=== PATIENT | male | born 1990 | race Caucasian/White ===

== ENCOUNTER 2018-11-03 07:12 | Emergency (ER) | payer OTHER ==
[2018-11-03 07:25] VITALS: BP 121/76
--- NOTE | 2018-11-03 07:33 | UC ---
Throat Pain/Nasal Sav HPI - HPI Summary HPI Summary: patient is a 28-year-old male who presents to the urgent care with chief complaint of sore throat. He reports that this HAS BEEN THERE SINCE MONDAY. He denies any fevers however he has been feeling hot and cold. He denies any difficulty swallowing, he denies any ear pain, cough or shortness of breath. She has no other complaints. He denies any trismus, denies any swelling of the tongue, denies any lip swelling. - History of Current Complaint Chief Complaint: UCRespiratory Stated Complaint: SORE THROAT Time Seen by Provider: 11/03/18 07:27 Hx Obtained From: Patient Onset/Duration: Gradual Onset Severity: Mild Pain Intensity: 3 - Allergies/Home Medications Allergies/Adverse Reactions: Allergies Allergy/AdvReac Type Severity Reaction Status Date / Time No Known Allergies Allergy Verified 11/03/18 07:25 Home Medications: Home Medications NK [No Home Medications Reported] 11/03/18 [History Confirmed 11/03/18] PMH/Surg Hx/FS Hx/Imm Hx Previously Healthy: Yes - Surgical History Surgical History: Yes Surgery Procedure, Year, and Place: WISDOM TEETH;. SKIN BIOSPY; - Family History Known Family History: Positive: Non-Contributory - Social History Alcohol Use: None Substance Use Type: None Smoking Status (MU): Never Smoked Tobacco Review of Systems All Other Systems Reviewed And Are Negative: Yes Constitutional: Positive: Chills Skin: Positive: Negative Eyes: Positive: Negative ENT: Positive: Sore Throat Respiratory: Positive: Negative Cardiovascular: Positive: Negative Gastrointestinal: Positive: Negative Genitourinary: Positive: Negative Motor: Positive: Negative Neurovascular: Positive: Negative Musculoskeletal: Positive: Negative Neurological: Positive: Negative Psychological: Positive: Negative Is Patient Immunocompromised?: No Physical Exam - Summary Physical Exam Summary: Vital signs: Reviewed Gen.: Patient is a well developed and nourished male in no acute distress. Patient is sitting comfortably on the stretcher. Head: Normacephalic and atraumatic Eyes: PERRLA, EOMI x2. Ears: Right ear canal and TM WNL Left ear canal and TM WNL Nose Nose with dry mucosa and clear discharge. No sinus tenderness and mouth: positive pharyngeal erythema without exudate Neck: Supple, no lymphadenopathy No JVD Lungs: CTA B/L CVS: S1 & S2 present. No murmurs appreciated. ABDOMEN: Soft NT w/ positive BS. EXT: FROM x 4 NEURO: A+O X 3. Triage Information Reviewed: Yes Appearance: Well-Appearing Vital Signs: Initial Vital Signs Temp 98.2 F 11/03/18 07:16 Pulse 70 11/03/18 07:16 Resp 16 11/03/18 07:16 BP 121/76 11/03/18 07:16 Pulse Ox 97 11/03/18 07:16 Vital Signs Reviewed: Yes Throat Pain/Nasal Course/Dx - Course Course Of Treatment: rapid strep test is negative. Therefore believe that the symptoms are secondary to viral infection. Therefore, he was advised to take ibuprofen or Tylenol for pain or fever. He was recommended to follow-up with primary care physician. - Differential Dx/Diagnosis Provider Diagnosis: Viral pharyngitis Discharge - Sign-Out/Discharge Documenting (check all that apply): Patient Departure All imaging exams completed and their final reports reviewed: No Studies - Discharge Plan Condition: Stable Disposition: HOME Patient Education Materials: Pharyngitis (ED) Referrals: Fe Mcfarland NP [Primary Care Provider] - Additional Instructions: Take Ibuprofen or Tylenol for pain or fever Increase your fluid intake F/U with PCP in the next 2-3 days Return to the UC if symptoms worse - Billing Disposition and Condition Condition: STABLE Disposition: Home
== END 2018-11-03 07:50 | disposition home or self-care (01) ==
LOC: UCEAST 07:12
DX: J02.8 Acute pharyngitis due to other specified organisms (principal)
CPT/HCPCS: 87651; 99211; G0463

== ENCOUNTER 2019-02-06 09:13 | Emergency (ER) | payer OTHER ==
[2019-02-06 09:36] VITALS: BP 112/64
--- NOTE | 2019-02-06 10:00 | UC ---
Throat Pain/Nasal Sav HPI - HPI Summary HPI Summary: Patient is a 28yo male presenting with cold symptoms and sore throat x1 week. Patient states the past few days his symptoms have worsened and he has had "trouble regulating his temperature." Also complains of swollen tender node on left anterior neck. Notes fever with highest at home temp of 100.5. Patient is concerned as to why his symptoms are lasting so long. - History of Current Complaint Chief Complaint: UCGeneralIllness Stated Complaint: SORE THROAT COUGH FEVER CHILLS Hx Obtained From: Patient Onset/Duration: Gradual Onset, Lasting Days Severity: Mild Pain Intensity: 4 Pain Scale Used: 0-10 Numeric - Allergies/Home Medications Allergies/Adverse Reactions: Allergies Allergy/AdvReac Type Severity Reaction Status Date / Time No Known Allergies Allergy Verified 02/06/19 09:29 PMH/Surg Hx/FS Hx/Imm Hx Previously Healthy: Yes - Surgical History Surgical History: Yes Surgery Procedure, Year, and Place: WISDOM TEETH;. SKIN BIOSPY; - Family History Known Family History: Positive: Non-Contributory - Social History Alcohol Use: None Substance Use Type: None Smoking Status (MU): Never Smoked Tobacco Review of Systems All Other Systems Reviewed And Are Negative: Yes Constitutional: Positive: Fever, Chills. Negative: Fatigue ENT: Positive: Sore Throat, Sinus Congestion. Negative: Ear Ache, Nasal Discharge, Sinus Pain/Tenderness Respiratory: Positive: Cough. Negative: Shortness Of Breath Cardiovascular: Positive: Negative Gastrointestinal: Positive: Negative. Negative: Abdominal Pain, Vomiting, Diarrhea, Nausea Musculoskeletal: Positive: Negative. Negative: Myalgia Neurological: Positive: Negative. Negative: Headache Physical Exam Triage Information Reviewed: Yes Appearance: Well-Appearing, No Pain Distress, Well-Nourished Vital Signs: Initial Vital Signs Temp 99.9 F 02/06/19 09:29 Pulse 89 02/06/19 09:29 Resp 18 02/06/19 09:29 BP 112/64 02/06/19 09:29 Pulse Ox 99 02/06/19 09:29 Lab Results 02/06/19 Range/Units 10:22 Group A Strep Rapid Negative (Negative) Eyes: Positive: Conjunctiva Clear ENT: Positive: Hearing grossly normal, Pharyngeal erythema, TMs normal, Uvula midline. Negative: Nasal congestion, Nasal drainage, TM bulging, TM dull, TM red, Tonsillar swelling, Tonsillar exudate, Sinus tenderness Neck exam: Normal Neck: Positive: Supple, Nontender, No Lymphadenopathy Respiratory Exam: Normal Respiratory: Positive: Lungs clear, Normal breath sounds, No respiratory distress Cardiovascular Exam: Normal Cardiovascular: Positive: RRR Neurological: Positive: Alert Psychological: Positive: Age Appropriate Behavior Throat Pain/Nasal Course/Dx - Course Course Of Treatment: Discussed negative strep test with patient and likely viral etiology of his symptoms. Instructed him continue with symptomatic treatment and to follow up with [facility] if symptoms persist. Patient voiced understanding and agreed with the treatment plan. - Differential Dx/Diagnosis Provider Diagnosis: Pharyngitis Discharge ED - Sign-Out/Discharge Documenting (check all that apply): Patient Departure All imaging exams completed and their final reports reviewed: No Studies - Discharge Plan Condition: Stable Disposition: HOME Patient Education Materials: Pharyngitis (ED), Viral Syndrome (ED) Referrals: [facility] [Outside] - If Needed [facility] [place] [facility] [Outside] - If Needed Additional Instructions: As discussed, your symptoms are most likely caused by a virus. Virus do not respond to antibiotic treatment. You may continue to take over the counter cough and cold medications for your cold symptoms. You may continue with throat lozenges and throat sprays to relieve sore throat. You may take ibuprofen and tylenol as directed for pain and fever relief. Get plenty of rest and fluids. Follow up with your primary care doctor or one one the referrals listed below if your symptoms worsen or do not resolve within 7 days. - Billing Disposition and Condition Condition: STABLE Disposition: Home
== END 2019-02-06 10:43 | disposition home or self-care (01) ==
LOC: UCEAST 09:13
DX: J02.9 Acute pharyngitis, unspecified (principal); R09.81 Nasal congestion; R05 Cough
CPT/HCPCS: 87651; 99211; G0463

== ENCOUNTER 2019-02-11 08:59 | Emergency (ER) | payer OTHER ==
[2019-02-11 09:12] VITALS: BP 97/60
--- NOTE | 2019-02-11 09:38 | UC ---
Throat Pain/Nasal Sav HPI - HPI Summary HPI Summary: 28-year-old male comes in with a chief complaint of 13 days of upper respiratory tract infection symptoms. Primarily been a sore throat. Throat hurts worse with swallowing. Has been fatigued and sleeping more than usual. The infection has gone into his chest some but is not short of breath. Rhinorrhea is green he does have minimal rhinorrhea and minimal sputum. He did have body aches and a headache although that's less pronounced now. Yesterday started with diffuse generalized hives. No difficulty breathing. It hurts when he swallows but he is able to swallow. He's been taking multiple different [id number] medications. Because of the rash is decided to stop ibuprofen and has switched to acetaminophen. Today he still has some hives but just on his left buttock. Yesterday the hives were all over his chest. - History of Current Complaint Chief Complaint: UCGeneralIllness Stated Complaint: COUGH Time Seen by Provider: 02/11/19 09:17 Pain Intensity: 6 - Allergies/Home Medications Allergies/Adverse Reactions: Allergies Allergy/AdvReac Type Severity Reaction Status Date / Time No Known Allergies Allergy Verified 02/11/19 09:13 PMH/Surg Hx/FS Hx/Imm Hx Previously Healthy: Yes - Surgical History Surgical History: Yes Surgery Procedure, Year, and Place: WISDOM TEETH;. SKIN BIOSPY; - Family History Known Family History: Positive: Non-Contributory - Social History Alcohol Use: None Substance Use Type: None Smoking Status (MU): Never Smoked Tobacco Review of Systems All Other Systems Reviewed And Are Negative: Yes Constitutional: Positive: Fatigue, Other - SEE HPI Skin: Positive: Rash Eyes: Positive: Negative ENT: Positive: Sore Throat, Nasal Discharge, Sinus Congestion Respiratory: Positive: Cough, Other - SEE HPI Cardiovascular: Positive: Negative Gastrointestinal: Positive: Negative Genitourinary: Positive: Negative Motor: Positive: Negative Neurovascular: Positive: Negative Musculoskeletal: Positive: Myalgia Neurological: Positive: Headache Psychological: Positive: Negative Is Patient Immunocompromised?: No Physical Exam Triage Information Reviewed: Yes Appearance: No Pain Distress, Well-Nourished, Ill-Appearing - MILD Vital Signs: Initial Vital Signs Temp 99 F 02/11/19 09:06 Pulse 96 02/11/19 09:06 Resp 16 02/11/19 09:06 BP 97/60 02/11/19 09:06 Pulse Ox 100 02/11/19 09:06 Vital Signs Reviewed: Yes Eye Exam: Normal Eyes: Positive: Conjunctiva Clear ENT: Positive: Pharyngeal erythema, Nasal congestion, Nasal drainage, Uvula midline, Other - Pharynx and tonsils are erythematous. Tonsils are 1+ bilaterally. Oral pharynx is open. I do not appreciate any peritonsillar abscess. Voice is normal. Neck: Positive: Supple Respiratory: Positive: Lungs clear, Normal breath sounds, No respiratory distress Cardiovascular: Positive: RRR Musculoskeletal: Positive: Strength Intact, ROM Intact Neurological: Positive: Alert, Muscle Tone Normal Psychological: Positive: Age Appropriate Behavior Skin: Positive: Other - There is a 15 cm x 4 cm raised erythematous hives on the left buttock. Throat Pain/Nasal Course/Dx - Course Course Of Treatment: Patient has upper respiratory tract infection and pharyngitis symptoms for greater than 10 days therefore we'll treat with cephalexin. Patient has very difficult time taking pills therefore I prescribed liquid. Patient's tonsils are not excessively large and although he has some fatigue it is somewhat less than expected with mononucleosis. Blood work drawn today for CBC, CMP, Lyme screen, and Monospot. The source the hives is unclear however the patient has stopped ibuprofen and switching acetaminophen. Also let him know he can take Benadryl if needed. At this time the hives are restricted to one area of his body and are not generalized and there is no difficulty with respirations. I let the patient know that if the hives got worse he needs to get reevaluated. Also if his overall condition worsens or does not improve he needs reevaluation preferably in the emergency department. - Differential Dx/Diagnosis Provider Diagnosis: Pharyngitis, Hives, Upper respiratory infection Discharge ED - Sign-Out/Discharge Documenting (check all that apply): Patient Departure All imaging exams completed and their final reports reviewed: No Studies - Discharge Plan Condition: Stable Disposition: HOME Prescriptions: Cephalexin SUSP* [Keflex SUSP 250 MG/5 ML*] 500 mg PO TID #300 ml Patient Education Materials: Urticaria (ED), Pharyngitis (ED), Upper Respiratory Infection (ED) Forms: *Work Release Referrals: [facility] [place] [facility] [Outside] Additional Instructions: FOLLOW UP WITH YOUR DOCTOR IF NOT COMPLETELY IMPROVED. PENDING BLOOD WORK; CBC, CMP, LYME, AND MONONUCLEOSIS. GO TO THE EMERGENCY DEPARTMENT IF YOUR CONDITION WORSENS; DIFFICULTY SWALLOWING OR BREATHING, DEHYDRATION, YOU FEEL ILL OR ANY QUESTIONS OR CONCERNS. - Billing Disposition and Condition Condition: STABLE Disposition: Home
[2019-02-11 11:18] LABS: Hematocrit 45 % (42-52); Mean Corpuscular HGB Conc 35 g/dL (31-36); Mean Corpuscular Hemoglobin 31 pg (27-31); Mean Corpuscular Volume 87 fL (80-94); Mean Platelet Volume 8.8 fL (7.4-10.4); Platelet Count 156 10^3/uL (150-450); Red Cell Distribution Width 12 % (10-15); White Blood Count 8.4 10^3/uL (3.5-10.8)
[2019-02-11 12:17] LABS: ABS Basophils 0.1 10^3/ul (0-0.2); ABS Lymphocytes 4.4 10^3/ul (1.0-4.8); ABS Monocytes 0.8 10^3/ul (0-0.8); ABS Neutrophils 3.1 10^3/ul (1.5-7.7); ABS Nucleated RBC 0.1 10^3/ul; Eosinophil % 0.3 %
[2019-02-11 12:54] LABS: Albumin 4.4 g/dL (3.2-5.2); Albumin/Globulin Ratio 1.7 (1-3); BUN/Creatinine Ratio 5.9 (8-20); Calcium 9.4 mg/dL (8.6-10.3); EGFR African American 87.5 (>60); EGFR Non-African American 72.3 (>60); Globulin 2.6 g/dL (2-4); Potassium 4.7 mmol/L (3.5-5.0); Total Bilirubin 0.5 mg/dL (0.2-1.0)
--- NOTE | 2019-02-12 10:47 | UC ---
- Progress Note Progress Note: Reviewed blood work as available from [facility] [place] visit 02/11/19. + monospot. INCREASED LFT's, other abnormalities too. F/u PCP THIS WEEK. NO ALCOHOL, NO ACETAMINOPHEN, NO CONTACT SPORTS / HEAVY LIFTING UNTIL OK BY PCP. Hydrate. If you do not have a PCP, then recommend go to the Emergency Department for further evaluation. Course/Dx - Diagnoses Provider Diagnoses: Pharyngitis, Hives, Upper respiratory infection Discharge ED - Sign-Out/Discharge Documenting (check all that apply): Post-Discharge Follow Up All imaging exams completed and their final reports reviewed: No Studies - Discharge Plan Condition: Stable Disposition: HOME Prescriptions: Cephalexin SUSP* [Keflex SUSP 250 MG/5 ML*] 500 mg PO TID #300 ml Patient Education Materials: Urticaria (ED), Pharyngitis (ED), Upper Respiratory Infection (ED) Forms: *Work Release Referrals: [facility] [facility] [place] [facility] [Outside] Additional Instructions: FOLLOW UP WITH YOUR DOCTOR IF NOT COMPLETELY IMPROVED. PENDING BLOOD WORK; CBC, CMP, LYME, AND MONONUCLEOSIS. GO TO THE EMERGENCY DEPARTMENT IF YOUR CONDITION WORSENS; DIFFICULTY SWALLOWING OR BREATHING, DEHYDRATION, YOU FEEL ILL OR ANY QUESTIONS OR CONCERNS. - Billing Disposition and Condition Condition: STABLE Disposition: Home
== END 2019-02-11 09:45 | disposition home or self-care (01) ==
LOC: UCEAST 08:59
DX: J06.9 Acute upper respiratory infection, unspecified (principal); J02.9 Acute pharyngitis, unspecified; L50.9 Urticaria, unspecified; R79.89 Other specified abnormal findings of blood chemistry; B27.90 Infectious mononucleosis, unspecified without complication
CPT/HCPCS: 36415; 80053; 85025; 85060; 86308; 86618; 99212; G0463